=== PATIENT | female | born 1995 | race Caucasian/White ===

== ENCOUNTER → 2019-11-03 | Outpatient (CLI) | payer OTHER ==
--- NOTE | 2019-11-03 17:42 | MR ---
EXAMINATION TYPE: MR shoulder RT wo con DATE OF EXAM: 11/03/2019 COMPARISON: None HISTORY: 24 year-old female right shoulder pain, prior surgery 2012 TECHNIQUE: Multiplanar, multisequence imaging of the right shoulder is performed without contrast. FINDINGS: Long head biceps tendon appears intact and appropriately situated along the bicipital groove. The subscapularis tendon is intact. Mild degenerative change at the AC joint with marginal spurring, moderate space narrowing, capsular h ypertrophy. There is mild subchondral marrow edema and capsular edema. Mild mass effect onto the unde rlying myotendinous junction of the supraspinatus. Some minimal bursal sided fraying of the supraspinatus tendon is suggested. Some minimal intrasubstan ce change at the insertion of the infraspinatus tendon. No discrete tear of either supraspinatus or infraspinatus tendon is otherwise seen. No atrophy of the rotator cuff musculature. Trace fluid within the subacromial bursa. The glenohumeral joint appears intact without joint effusion. No discrete labral tear given nonarthrographic technique and no paralabral cyst. No Hill-Sachs deformity or os acromiale. Patchy red marrow is compatible with patient's young age. IMPRESSION: 1. Minimal bursal sided fraying of the supraspinatus tendon and minimal intrasubstance change at the insertion of the infraspinatus tendon. No discrete rotator cuff tear. 2. Mild AC joint OA. Subchondral bone marrow edema and capsular edema could represent a low-grade AC joint sprain. 3. There is mild subacromial impingement suggested.
== END | disposition home or self-care (01) ==
LOC: RADMRIMAIN 16:20
PROVIDERS: ATTEND Orthopaedic Surgery
DX: M19.011 Primary osteoarthritis, right shoulder (principal); M54.12 Radiculopathy, cervical region

== ENCOUNTER 2020-02-11 00:25 | Emergency (ER) | payer OTHER ==
[2020-02-11 00:34] VITALS: BP 116/74; PULSE 60; RESP 18; TEMP 98.4
--- NOTE | 2020-02-11 00:57 | ED ---
General Adult HPI - General Chief complaint: Extremity Injury, Lower Stated complaint: Foot Injury Time Seen by Provider: 02/11/20 00:35 Source: patient, family, RN notes reviewed Mode of arrival: wheelchair Limitations: no limitations - History of Present Illness Initial comments: 24-year-old female presents to the emergency room for a chief complaint of right foot injury. Patient reports that her coat got caught on a 50 pound stool and pulled it over. It fell onto the top of her foot. Patient reports that she is not having pain on the dorsum of the foot. States it is painful to move her toes but denies any difficulty doing so. Patient denies any numbness or tingling in the foot. Denies any other injury. Patient reports that it is painful to bear weight on the distal aspect of the foot because of pain.Patient has no other complaints at this time including shortness of breath, chest pain, abdominal pain, nausea or vomiting, headache, or visual changes. - Related Data Home Medications Medication Instructions Recorded Confirmed Norgestimate-Ethinyl Estradiol 1 tab PO DAILY 09/09/15 02/26/16 [Sprintec 28 Day Tablet] Previous Rx's Medication Instructions Recorded Ibuprofen [Motrin] 800 mg PO Q6HR PRN #30 tab 02/26/16 Allergies Allergy/AdvReac Type Severity Reaction Status Date / Time Penicillins Allergy Dyspnea, Verified 02/11/20 00:35 RASH HIVES Review of Systems ROS Statement: Those systems with pertinent positive or pertinent negative responses have been documented in the HPI. ROS Other: All systems not noted in ROS Statement are negative. Past Medical History Past Medical History: No Reported History History of Any Multi-Drug Resistant Organisms: None Reported Past Surgical History: Bariatric Surgery, Orthopedic Surgery Additional Past Surgical History / Comment(s): DERMOID TUMOR(LOWER ABDOMEN), RIGHT SHOULDER, Past Anesthesia/Blood Transfusion Reactions: No Reported Reaction Past Psychological History: No Psychological Hx Reported Smoking Status: Never smoker Past Alcohol Use History: Rare Past Drug Use History: None Reported - Past Family History Mother Family Medical History: No Reported History General Exam Limitations: no limitations General appearance: alert, in no apparent distress Head exam: Present: atraumatic, normocephalic, normal inspection Eye exam: Present: normal appearance, PERRL, EOMI. Absent: scleral icterus, conjunctival injection, periorbital swelling ENT exam: Present: normal exam, mucous membranes moist Neck exam: Present: normal inspection, full ROM. Absent: tenderness, meningismus, lymphadenopathy Respiratory exam: Present: normal lung sounds bilaterally. Absent: respiratory distress, wheezes, rales, rhonchi, stridor Cardiovascular Exam: Present: regular rate, normal rhythm, normal heart sounds. Absent: systolic murmur, diastolic murmur, rubs, gallop, clicks GI/Abdominal exam: Present: soft, normal bowel sounds. Absent: distended, tenderness, guarding, rebound, rigid Extremities exam: Present: tenderness (Tenderness to first MTP joint of the right foot with tenderness in the second and third toes. Mild edema noted to the dorsum of the first MTP joint. Otherwise no edema of the right foot.), normal capillary refill (Capillary refill less than 2 seconds, DP pulse 2+ in the right lower extremity.), other (Sensation intact right lower extremity.). Absent: full ROM (Patient has limited range of motion of all toes however this is secondary to pain. Flexion and extension mechanisms are intact.), calf tenderness Course Vital Signs 02/11/20 00:28 Temperature 98.4 F Pulse Rate 60 Respiratory 18 Rate Blood Pressure 116/74 O2 Sat by Pulse 100 Oximetry Medical Decision Making - Medical Decision Making X-ray of the right foot is negative. Patient was placed in a fracture shoe. Patient can follow up with orthopedics or primary care. Referral given orthopedics. She will take Motrin and Tylenol for pain. She'll return for any worsening symptoms. Disposition Clinical Impression: Foot pain, Contusion Disposition: HOME SELF-CARE Condition: Good Instructions (If sedation given, give patient instructions): Foot Contusion (ED) Additional Instructions: Take Motrin and Tylenol for pain. Rest ice and elevate the right foot. If pain does not resolve over the next 7 days you may benefit from repeat x-rays. You were given referral to orthopedics. Follow-up with primary care in 1-2 days. Return to the emergency room for any worsening symptoms. Is patient prescribed a controlled substance at d/c from ED?: No Referrals: Gustavo Calderon MD [STAFF PHYSICIAN] - 1-2 days Time of Disposition: 01:22
--- NOTE | 2020-02-11 00:57 | XR ---
EXAMINATION TYPE: XR foot complete RT DATE OF EXAM: 02/11/2020 COMPARISON: NONE HISTORY: Foot pain TECHNIQUE: 3 views FINDINGS: Metatarsals are intact. I see no fracture nor dislocation. Joint spaces are normal. Soft tissues appear normal. IMPRESSION: Negative right foot exam.
== END 2020-02-11 01:58 | disposition home or self-care (01) ==
LOC: EC 00:25
DX: S90.31XA Contusion of right foot, initial encounter (principal); Z98.84 Bariatric surgery status; Z88.0 Allergy status to penicillin; W20.8XXA Other cause of strike by thrown, projected or falling object, initial encounter
CPT/HCPCS: 99283

== ENCOUNTER 2020-11-16 21:36 | Emergency (ER) | payer OTHER ==
[2020-11-16 21:47] VITALS: RESP 16
[2020-11-16] MEDS ORDERED: SODIUM CHLORIDE 0.9% 1,000 ML IV ONE (22:43)
[2020-11-16 23:05] LABS: Basophils % (A) 0 %; Eosinophils # (A) 0.1 k/uL (0-0.7); Eosinophils % (A) 2 %; HCT 33.2 % (34.0-46.0); HGB 11.7 gm/dL (11.4-16.0); Lymphocytes # (A) 1.9 k/uL (1.0-4.8); Lymphocytes % (A) 29 %; MCH 30.7 pg (25.0-35.0); MCHC 35.3 g/dL (31.0-37.0); Mean Platelet Volume 7.7; Monocytes # (A) 0.5 k/uL (0-1.0); Monocytes % (A) 8 %; Neutrophils # (A) 3.8 k/uL (1.3-7.7); Neutrophils % (A) 59 %; Platelet Count 217 k/uL (150-450); RBC 3.82 m/uL (3.80-5.40); RDW 11.7 % (11.5-15.5); WBC 6.4 k/uL (3.8-10.6)
[2020-11-16 23:17] LABS: Amorphous Sediment,Urine Rare /hpf; Appearance,Urine Clear (Clear); Bilirubin,Urine Negative (Negative); Blood,Urine Trace (Negative); Color,Urine Light Yellow; Glucose,Urine (UA) Negative (Negative); Ketones,Urine Negative (Negative); Leukocyte Esterase,Urine Negative (Negative); Mucus,Urine Rare /hpf; Nitrite,Urine Negative (Negative); PH, Urine 5.5 (5.0-8.0); Protein,Urine Negative (Negative); RBC,Urine 1 /hpf (0-5); Specific Gravity,Urine 1.011 (1.001-1.035); Squamous Epithelial Cell,Urine 1 /hpf (0-4); Urobilinogen,Urine <2.0 mg/dL (<2.0); WBC,Urine <1 /hpf (0-5)
[2020-11-16 23:20] LABS: ALT 28 U/L (4-34); AST 35 U/L (14-36); African American GFR (CKD) >90 (>60 ml/min/1.73 sqM); Albumin 4.4 g/dL (3.5-5.0); Alkaline Phosphatase 41 U/L (38-126); Anion Gap 8 mmol/L; Blood Urea Nitrogen 9 mg/dL (7-17); Calcium 9.5 mg/dL (8.4-10.2); Carbon Dioxide 23 mmol/L (22-30); Chloride 106 mmol/L (98-107); Glucose 88 mg/dL (74-99); Non-African American GFR(CKD) >90 (>60 ml/min/1.73 sqM); Potassium 4.1 mmol/L (3.5-5.1); Sodium 137 mmol/L (137-145); Total Bilirubin 0.5 mg/dL (0.2-1.3); Total Protein 7.1 g/dL (6.3-8.2)
[2020-11-17 00:06] VITALS: BP 113/67; PULSE 62; TEMP 97.9
--- NOTE | 2020-11-17 00:18 | ED ---
General Adult HPI - General Chief complaint: Vaginal Bleeding Stated complaint: 8 wks preg, vaginal bleeding Time Seen by Provider: 11/16/20 22:04 Source: patient Mode of arrival: ambulatory - History of Present Illness Initial comments: 25 year-old female patient who thinks she is 7-9 weeks , last menstrual period 07/15/20, presents for evaluation of vaginal bleeding. She is . States she did have light spotting and cramping starting this morning. This evening the bleeding became heavier and was bright red so she presented here for further evaluation. States that she did have labs and ultrasound at an OBGYN on [address] States that her last hCG was around 7,000 and they would not give her information regarding what the ultrasound showed. Just told her if she had any bleeding that she needed to be seen in ED. She states that the bleeding has slowed at this time. Continues to have pressure in the lower abdomen. Denies any fever or chills. Denies any hematuria, dysuria, urinary frequency, urinary urgency. Patient denies any recent rash, cough, shortness of breath, chest pain, back pain, numbness, tingling, dizziness, weakness, headache, visual changes, or any other complaints. - Related Data Home Medications Medication Instructions Recorded Confirmed Norgestimate-Ethinyl Estradiol 1 tab PO DAILY 09/09/15 02/26/16 [Sprintec 28 Day Tablet] Previous Rx's Medication Instructions Recorded Ibuprofen [Motrin] 800 mg PO Q6HR PRN #30 tab 02/26/16 Allergies Allergy/AdvReac Type Severity Reaction Status Date / Time Penicillins Allergy Dyspnea, Verified 11/16/20 21:47 RASH HIVES Review of Systems ROS Statement: Those systems with pertinent positive or pertinent negative responses have been documented in the HPI. ROS Other: All systems not noted in ROS Statement are negative. Past Medical History Past Medical History: No Reported History History of Any Multi-Drug Resistant Organisms: None Reported Past Surgical History: Bariatric Surgery, Orthopedic Surgery Additional Past Surgical History / Comment(s): DERMOID TUMOR(LOWER ABDOMEN), RIGHT SHOULDER, Past Anesthesia/Blood Transfusion Reactions: No Reported Reaction Past Psychological History: No Psychological Hx Reported Smoking Status: Never smoker Past Alcohol Use History: Rare Past Drug Use History: None Reported - Past Family History Mother Family Medical History: No Reported History General Exam General appearance: alert, in no apparent distress, other (Physical well- developed, well-nourished adult female patient in no acute distress. Vital signs upon presentation are temperature 98.5F, pulse 57, respirations 16, blood pressure 135/77, pulse ox 99% on room air.) ENT exam: Present: normal exam, normal oropharynx, mucous membranes moist Respiratory exam: Present: normal lung sounds bilaterally. Absent: respiratory distress, wheezes, rales, rhonchi, stridor Cardiovascular Exam: Present: regular rate, normal rhythm, normal heart sounds. Absent: systolic murmur, diastolic murmur, rubs, gallop, clicks GI/Abdominal exam: Present: soft, tenderness (Suprapubic), normal bowel sounds. Absent: distended, guarding, rebound, rigid Neurological exam: Present: alert, oriented X3, CN II-XII intact Psychiatric exam: Present: normal affect, normal mood Skin exam: Present: warm, dry, intact, normal color. Absent: rash Course Vital Signs 11/16/20 11/16/20 11/17/20 21:42 22:41 00:00 Temperature 98.5 F 97.9 F Pulse Rate 57 L 62 Respiratory 16 16 16 Rate Blood Pressure 135/77 113/67 O2 Sat by Pulse 99 99 Oximetry Medical Decision Making - Medical Decision Making 25-year-old female patient , presents for evaluation of vaginal bleeding and cramping in early . Patient reported being around 7-9 weeks . Physical exam is unremarkable. Vaginal exam shows no bleeding at this time. Cervical os is closed[place] [address], ABO/Rh A+. US showed viable intrauterine measuring 6 weeks, 3 days with Left ovarian cyst, possible small subchorionic hemorrhage, and low heart rate. I did discuss findings and results with the patient. We did discuss possibility of threatened miscarriage. She is instructed to follow-up with her [facility] for recheck in 1-2 days. Return parameters were discussed in detail. She v erbalizes understanding and agrees with this plan. Case discussed in my attending Dr. Jacob. - Lab Data Result diagrams: 11/16/20 22:55 11/16/20 22:55 Lab Results 11/16/20 11/16/20 11/16/20 Range/Units 22:55 22:55 22:55 WBC 6.4 (3.8-10.6) k/uL RBC 3.82 (3.80-5.40) m/uL Hgb 11.7 (11.4-16.0) gm/dL Hct 33.2 L (34.0-46.0) % MCV 87.0 (80.0-100.0) fL MCH 30.7 (25.0-35.0) pg MCHC 35.3 (31.0-37.0) g/dL RDW 11.7 (11.5-15.5) % Plt Count 217 (150-450) k/uL MPV 7.7 Neutrophils % 59 % Lymphocytes % 29 % Monocytes % 8 % Eosinophils % 2 % Basophils % 0 % Neutrophils # 3.8 (1.3-7.7) k/uL Lymphocytes # 1.9 (1.0-4.8) k/uL Monocytes # 0.5 (0-1.0) k/uL Eosinophils # 0.1 (0-0.7) k/uL Basophils # 0.0 (0-0.2) k/uL Sodium 137 (137-145) mmol/L Potassium 4.1 (3.5-5.1) mmol/L Chloride 106 (98-107) mmol/L Carbon Dioxide 23 (22-30) mmol/L Anion Gap 8 mmol/L BUN 9 (7-17) mg/dL Creatinine 0.49 L (0.52-1.04) mg/dL Est GFR (CKD-EPI)AfAm >90 (>60 ml/min/1.73 sqM) Est GFR (CKD-EPI)NonAf >90 (>60 ml/min/1.73 sqM) Glucose 88 (74-99) mg/dL Calcium 9.5 (8.4-10.2) mg/dL Total Bilirubin 0.5 (0.2-1.3) mg/dL AST 35 (14-36) U/L ALT 28 (4-34) U/L Alkaline Phosphatase 41 (38-126) U/L Total Protein 7.1 (6.3-8.2) g/dL Albumin 4.4 (3.5-5.0) g/dL HCG, Quant 41035.0 mIU/mL Urine Color Light Yellow Urine Appearance Clear (Clear) Urine pH 5.5 (5.0-8.0) Ur Specific [place] 1.011 (1.001-1.035) Urine Protein Negative (Negative) Urine Glucose (UA) Negative (Negative) Urine Ketones Negative (Negative) Urine Blood Trace H (Negative) Urine Nitrite Negative (Negative) Urine Bilirubin Negative (Negative) Urine Urobilinogen <2.0 (<2.0) mg/dL Ur Leukocyte Esterase Negative (Negative) Urine RBC 1 (0-5) /hpf Urine WBC <1 (0-5) /hpf Ur Squamous Epith Cells 1 (0-4) /hpf Amorphous Sediment Rare H (None) /hpf Urine Mucus Rare H (None) /hpf Blood Type Blood Type Recheck Bld Type Recheck Status 11/16/20 Range/Units 22:55 WBC (3.8-10.6) k/uL RBC (3.80-5.40) m/uL Hgb (11.4-16.0) gm/dL Hct (34.0-46.0) % MCV (80.0-100.0) fL MCH (25.0-35.0) pg MCHC (31.0-37.0) g/dL RDW (11.5-15.5) % Plt Count (150-450) k/uL MPV Neutrophils % % Lymphocytes % % Monocytes % % Eosinophils % % Basophils % % Neutrophils # (1.3-7.7) k/uL Lymphocytes # (1.0-4.8) k/uL Monocytes # (0-1.0) k/uL Eosinophils # (0-0.7) k/uL Basophils # (0-0.2) k/uL Sodium (137-145) mmol/L Potassium (3.5-5.1) mmol/L Chloride (98-107) mmol/L Carbon Dioxide (22-30) mmol/L Anion Gap mmol/L BUN (7-17) mg/dL Creatinine (0.52-1.04) mg/dL Est GFR (CKD-EPI)AfAm (>60 ml/min/1.73 sqM) Est GFR (CKD-EPI)NonAf (>60 ml/min/1.73 sqM) Glucose (74-99) mg/dL Calcium (8.4-10.2) mg/dL Total Bilirubin (0.2-1.3) mg/dL AST (14-36) U/L ALT (4-34) U/L Alkaline Phosphatase (38-126) U/L Total Protein (6.3-8.2) g/dL Albumin (3.5-5.0) g/dL HCG, Quant mIU/mL Urine Color Urine Appearance (Clear) Urine pH (5.0-8.0) Ur Specific [place] (1.001-1.035) Urine Protein (Negative) Urine Glucose (UA) (Negative) Urine Ketones (Negative) Urine Blood (Negative) Urine Nitrite (Negative) Urine Bilirubin (Negative) Urine Urobilinogen (<2.0) mg/dL Ur Leukocyte Esterase (Negative) Urine RBC (0-5) /hpf Urine WBC (0-5) /hpf Ur Squamous Epith Cells (0-4) /hpf Amorphous Sediment (None) /hpf Urine Mucus (None) /hpf Blood Type A Positive Blood Type Recheck No Previous Record Bld Type Recheck Status [facility] ONLY - Radiology Data Radiology results: report reviewed, image reviewed Ultrasound of the fetus was obtained. Report was reviewed in its entirety. Impression by Dr. Harvey shows ultrasound gestational age is 6 weeks and 3 days. heart rate is lower limits of normal. 4 x 3 cm left ovarian cyst. No solid adnexal mass. Disposition Clinical Impression: Threatened miscarriage Disposition: HOME SELF-CARE Condition: Good Instructions (If sedation given, give patient instructions): Threatened Miscarriage (ED) Additional Instructions: Follow up with OBGYN as soon as possible. Pelvic rest and to you are cleared by your credit review analyst. Return to the emergency department for any new, worsening, or concerning symptoms. Is patient prescribed a controlled substance at d/c from ED?: No Referrals: None,Stated [Primary Care Provider] - 1-2 days Time of Disposition: 00:44
--- NOTE | 2020-11-17 00:36 | US ---
EXAMINATION TYPE: Transabdominal DATE OF EXAM: 11/16/2020 11:54 PM COMPARISON: US. This is first US for this . CLINICAL HISTORY: Bleeding early . Bleeding. Hx cyst removal. . EXAM PERFORMED: Transvaginal (TV) and Transabdominal (TA) EXAM MEASUREMENTS: GESTATIONAL AGE / DATING Physician Established: Not yet established. Dates by LMP: Unknown. Dates by First Scan: This is first scan. Dates by Current Scan for: (6 weeks/3 days) EDC: 07/09/2021 MATERNAL ANATOMY Uterus: Limited measurement: 8.0 x 5.7 x 5.1 cm. Anteverted. Right Ovary: 4.0 x 2.9 x 2.7 cm. Appears slightly enlarged. Area of mixed echogenicity seen within t he right ovary: 2.6 x 2.1 x 1.5 cm. Left Ovary: 5.8 x 3.2 x 3.5 cm. Appears enlarged. Anechoic and complex areas seen within the left ova ry. Largest anechoic area seen measures 3.9 x 3.1 x 2.8 cm. Hyperechoic area seen: 1.1 x 0.7 x 1.2 cm . Post CDS / Adnexa: Fluid seen in CDS: 0.9 x 1.5 x 1.9 cm. Presence of free fluid: Free fluid seen in right adnexa, left adnexa, and CDS. Presence of corpus luteal cyst: Possible within right ovary. Presence of subchorionic bleed: Possible, Hypoechoic area seen adjacent to the gestational sac: 0.3 x 0.5 x 0.3 cm. GESTATION / SURVEY CRL: 0.59 cm. (6 weeks/3 days) Yolk Sac (normal less than 6mm): 2.7 mm. Heart Rate: 117 bpm, 118 bpm second measurement. Rhythm: Heart rate is slightly low (below 120 bpm). IUP: Viable IUP Date of LMP: Unknown. Beta HcG (if available): Not available. IMPRESSION: The ultrasound gestational age is 6 weeks and 3 days. heart rate is lower limit of normal. 4 x 3 cm left ovarian cyst. No solid adnexal mass.
== END 2020-11-17 01:27 | disposition home or self-care (01) ==
LOC: EC 21:36
DX: O20.0 Threatened abortion (principal); Z3A.01 Less than 8 weeks gestation of pregnancy
CPT/HCPCS: 36415; 76801; 76817; 80053; 81001; 84702; 85025; 86900; 86901; 99284

== ENCOUNTER 2021-05-23 18:45 | Outpatient (CLI) | payer OTHER ==
[2021-05-23] MEDS ORDERED: ACETAMINOPHEN IV (For NPO) 1,000 MG in EMPTY BAG 1 BAG IVPB ONE (19:23)
[2021-05-23] MEDS ORDERED: ONDANSETRON 4 MG/2 ML VIAL IVP STA (19:23)
[2021-05-23] MEDS ORDERED: LACTATED RINGERS 1,000 ML IV SCH (19:30)
[2021-05-23 19:49] LABS: Appearance,Urine Cloudy (Clear); Bilirubin,Urine Negative (Negative); Blood,Urine Negative (Negative); Color,Urine Yellow; Glucose,Urine (UA) Negative (Negative); Ketones,Urine 4+ (Negative); Leukocyte Esterase,Urine Small (Negative); Mucus,Urine Many /hpf; Nitrite,Urine Negative (Negative); Protein,Urine 2+ (Negative); RBC,Urine 1 /hpf (0-5); Specific Gravity,Urine 1.032 (1.001-1.035); Squamous Epithelial Cell,Urine 15 /hpf (0-4); WBC,Urine 3 /hpf (0-5)
[2021-05-23] MEDS ORDERED: ONDANSETRON 4 MG TAB PO PRN (20:38)
[2021-05-23 22:56] VITALS: BP 133/74; PULSE 129; RESP 17; TEMP 99.1
--- NOTE | 2021-05-26 09:40 | P.MSEPDOC ---
Presenting Problems - Arrival Data Date of Arrival on Unit: 05/23/21 Time of Arrival on Unit: 18:45 Mode of Transport: Ambulatory - Complaint OB-Reason for Admission/Chief Complaint: Acute Nausea/Vomiting, Headache, Other Comment: Patient presents to triage for nausea/vomiting, headache, fevers, and diarrhea after receiving Tdap vaccine on 05/22/21. Medical History - Information : 1 Para: 0 Term: 0 : 0 Abortions: Spontaneous or Elective: 0 Number of Living Children: 0 - Gestational Age Gestational Age by NANDA (wks/days): 33 Weeks and 3 Days - History Complications: Other Comment: Hypoglycemia, MC4R Receptor Mutation Review of Systems - Review of Systems Constitutional: Fever Breast: No problems ENT: No problems Cardiovascular: No problems Respiratory: No problems Gastrointestinal: Diarrhea Genitourinary: No problems Musculoskeletal: No problems Neurological: No problems Skin: No problems Vital Signs - Temperature Temperature: 99.1 F Temperature Source: Temporal Artery Scan - Pulse Pulse Oximetery Pulse Rate: 129 Pulse Assessment Method: Pulse Oximetry - Respirations Respiratory Rate: 17 Oxygen Delivery Method: Room Air O2 Sat by Pulse Oximetry: 100 - Blood Pressure Right Arm Blood Pressure: 133/74 Blood Pressure Mean: 93 Blood Pressure Source: Automatic Cuff Medical Screen Scoring - Assessment - Baby A Baseline FHR: 150 Heart Rate - NICHD Category: Category I (Normal) NST: Reactive Physician Notification - Physician Notified Physician Notified Date: 05/23/21 Physician Notified Time: 19:18 Physician: Dr. Peguero New Order Received: Yes - Notification Comment Comment: Report given to Dr. Peguero via telephone regarding patient complaints of nausea, vomiting, diarrhea, fevers and headache since 1529 on 05/22/21. 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 Orders from Dr. Peguero include a rapid COVID swab, urinalysis, bolus of 500 mL of lactated ringers, 1 gm of Ofirmev and 4 mg of zofran IVP. At 2033, spoke with Dr. Peguero regarding the patient's status, including a negative COVID. swab, urinalysis results, category 1 heart tones, vital signs and patient feeling less nauseous after dose of zofran. New orders include sending patient home with one dose of 4 mg PO zofran and educate patient regarding immune response from Tdap vaccine. Maternal Triage Index - Non-Urgent/Priority 4 Non-Urgent Priority 4: Yes Criteria Met for Priority 4: Patient presents to triage for nausea/vomiting, headache, fevers, and diarrhea after receiving Tdap vaccine on 05/22/21. Disposition - Disposition OB Disposition: Discharge to home, Written follow up instructions reviewed Discharge Date: 05/23/21 Discharge Time: 21:00 I agree with the RN Medical Screening Exam: Yes Case reviewed; plan agreed upon as documented in EMR&OBIX.: Yes Diagnosis: VOMITING OF , UNSPECIFIED
== END 2021-05-23 21:00 | disposition home or self-care (01) ==
LOC: FBPOP 18:45
PROVIDERS: ATTEND Obstetrics & Gynecology Obstetrics
DX: O21.2 Late vomiting of pregnancy (principal); Z3A.33 33 weeks gestation of pregnancy; Z88.0 Allergy status to penicillin; Z91.041 Radiographic dye allergy status
CPT/HCPCS: 59025; 96361; 96367; 96374; 81001; 87635; G0463; J2405; J0131; 99214

== ENCOUNTER 2022-12-12 01:54 | Emergency (ER) | payer OTHER ==
[2022-12-12 02:06] VITALS: RESP 18
[2022-12-12] MEDS ORDERED: ONDANSETRON 4 MG/2 ML VIAL IVP STA (02:19)
[2022-12-12] MEDS ORDERED: SODIUM CHLORIDE 0.9% 1,000 ML IV STA (02:19)
--- NOTE | 2022-12-12 02:26 | ED ---
General Adult HPI - General Chief complaint: Nausea/Vomiting/Diarrhea Stated complaint: Nausea, Blood in urine Time Seen by Provider: 12/12/22 02:08 Source: patient, RN notes reviewed, old records reviewed Mode of arrival: ambulatory Limitations: no limitations - History of Present Illness Initial comments: 27-year-old female presents for evaluation of nausea vomiting after initiating Wegovy. Patient began this medication one week ago she states this was at the high dose. She had significant nausea and vomiting and is unable to tolerate any oral liquids over the past one week. She states she had received IV fluids at outside facility early this morning he was also diagnosed with urinary tract infection. She has had bilateral low back pain and hematuria. No fever. - Related Data Home Medications Medication Instructions Recorded Confirmed norgestimate-ethinyl estradioL 1 tab PO DAILY 09/09/15 05/03/22 [Sprintec 28 Day Tablet] Previous Rx's Medication Instructions Recorded Ibuprofen [Motrin] 800 mg PO Q6HR PRN #30 tab 02/26/16 Allergies Allergy/AdvReac Type Severity Reaction Status Date / Time Penicillins Allergy Rash/Hives Verified 12/12/22 02:06 red dye AdvReac Rash/Hives Verified 12/12/22 02:06 Review of Systems ROS Statement: Those systems with pertinent positive or pertinent negative responses have been documented in the HPI. ROS Other: All systems not noted in ROS Statement are negative. Past Medical History Past Medical History: No Reported History Additional Past Medical History / Comment(s): LOW IRON LEVELS, MC4R mutation History of Any Multi-Drug Resistant Organisms: None Reported Past Surgical History: Bariatric Surgery, Orthopedic Surgery Additional Past Surgical History / Comment(s): DERMOID TUMOR(LOWER ABDOMEN), RIGHT SHOULDER, Past Anesthesia/Blood Transfusion Reactions: No Reported Reaction Past Psychological History: No Psychological Hx Reported Smoking Status: Never smoker Past Alcohol Use History: None Reported Past Drug Use History: None Reported - Past Family History Mother Family Medical History: No Reported History General Exam Limitations: no limitations General appearance: alert, in no apparent distress Head exam: Present: atraumatic, normocephalic Eye exam: Present: normal appearance ENT exam: Present: mucous membranes dry Neck exam: Present: normal inspection Respiratory exam: Present: normal lung sounds bilaterally. Absent: respiratory distress, wheezes Cardiovascular Exam: Present: regular rate, normal rhythm GI/Abdominal exam: Absent: distended Neurological exam: Present: alert, CN II-XII intact. Absent: motor sensory deficit Psychiatric exam: Present: normal affect, normal mood Skin exam: Present: warm, dry, intact Course Vital Signs 12/12/22 12/12/22 02:03 04:36 Temperature 98 F 98.8 F Pulse Rate 72 Pulse Rate [ 68 Right Pulse Oximetery] Respiratory 18 18 Rate Blood Pressure 116/80 Blood Pressure 106/65 [Left Arm Supine] O2 Sat by Pulse 100 99 Oximetry Medical Decision Making - Medical Decision Making Was pt. sent in by a medical professional or institution (, PA, [employer]EDER, urgent care, hospital, or retirement...) When possible be specific @ -No Did you speak to anyone other than the patient for history (EMS, parent, family, police, friend...)? What history was obtained from this source @ -No Did you review nursing and triage notes (agree or disagree)? Why? @ -I reviewed and agree with nursing and triage notes Were old charts reviewed (outside hosp., previous admission, EMS record, old EKG, old radiological studies, urgent care reports/EKG's, retirement records)? Report findings @ -No old charts were reviewed Differential Diagnosis (chest pain, altered mental status, abdominal pain women, abdominal pain men, vaginal bleeding, weakness, fever, dyspnea, syncope, headache, dizziness, GI bleed, back pain, seizure, CVA, palpatations, mental health, musculoskeletal)? @ Differential Abdominal Pain Women: Appendicitis, Cholecystitis, diverticulosis, ischemic bowel, pancreatitis, hepatitis, UTI, gastroenteritis, AAA, incarcerated hernia, bowel obstruction, constipation, inflammatory bowel, hepatitis, peptic ulcer disease, splenic infarction, perforated viscus, vulvitis, ovarian torsion, PID, kidney stone, placenta abruption, this is not meant to be an all-inclusive list EKG interpreted by me (3pts min.). @ -As above X-rays interpreted by me (1pt min.). @ -None done CT interpreted by me (1pt min.). @ CT negative for acute intra-abdominal process U/S interpreted by me (1pt. min.). @ -None done What testing was considered but not performed or refused? (CT, X-rays, U/S, labs)? Why? @ -None What meds were considered but not given or refused? Why? @ -None Did you discuss the management of the patient with other professionals (professionals i.e. , PA, [employer]EDER, lab, RT, psych nurse, social insurance administrator, microsoft exchange administrator, teacher, ambulance officer, case management coordinator)? Give summary @ -No Was smoking cessation discussed for >3mins.? @ -No Was critical care preformed (if so, how long)? @ -No Were there social determinants of health that impacted care today? How? (Homelessness, low income, unemployed, alcoholism, drug addiction, transportation, low edu. Level, literacy, decrease access to med. care, correction, rehab)? @ -No Was there de-escalation of care discussed even if they declined (Discuss DNR or withdrawal of care, Hospice)? DNR status @ -No What co-morbidities impacted this encounter? (DM, HTN, Smoking, COPD, CAD, Cancer, CVA, ARF, Chemo, Hep., AIDS, mental health diagnosis, sleep apnea, morbid obesity)? @ -[Prior gastric sleeve Was patient admitted / discharged? Hospital course, mention meds given and route, prescriptions, significant lab abnormalities, going to OR and other pertinent info. @ -[27-year-old female with abdominal pain nausea vomiting. Patient has normal CBC without leukocytosis, stable hemoglobin, normal electrolytes urinalysis is contaminated but does not appear to have signs of significant infection. CT is performed which is negative for acute intra-abdominal process. Patient r eevaluated after symptomatically treatment and is feeling significantly better. She received pain medication, antiemetics and IV fluids. She's given return parameters and will follow with her primary care physician. Undiagnosed new problem with uncertain prognosis? @ -No Drug Therapy requiring intensive monitoring for toxicity (Heparin, Nitro, Insulin, Cardizem)? @ -No Were any procedures done? @ -No Diagnosis/symptom? @ Abdominal Pain, nausea vomiting Acute, or Chronic, or Acute on Chronic? @ Acute Uncomplicated (without systemic symptoms) or Complicated (systemic symptoms)? @ -default Side effects of treatment? @ -No Exacerbation, Progression, or Severe Exacerbation? @ -No Poses a threat to life or bodily function? How? (Chest pain, USA, NC, pneumonia, PE, COPD, DKA, ARF, appy, cholecystitis, CVA, Diverticulitis, Homicidal, Suicidal, threat to staff... and all critical care pts) @ -Low risk at this time - Lab Data Result diagrams: 12/12/22 02:12/12/22 02: Lab Results 12/12/22 12/12/22 12/12/22 Range/Units 02: 02: 02:23 WBC 5.4 (3.8-10.6) k/uL RBC 4.49 (3.80-5.40) m/uL Hgb 13.4 (11.4-16.0) gm/dL Hct 38.7 (34.0-46.0) % MCV 86.2 (80.0-100.0) fL MCH 29.8 (25.0-35.0) pg MCHC 34.6 (31.0-37.0) g/dL RDW 11.5 (11.5-15.5) % Plt Count 220 (150-450) k/uL MPV 9.0 Neutrophils % 52 % Lymphocytes % 38 % Monocytes % 7 % Eosinophils % 1 % Basophils % 0 % Neutrophils # 2.8 (1.3-7.7) k/uL Lymphocytes # 2.1 (1.0-4.8) k/uL Monocytes # 0.4 (0-1.0) k/uL Eosinophils # 0.1 (0-0.7) k/uL Basophils # 0.0 (0-0.2) k/uL Sodium 136 L (137-145) mmol/L Potassium 4.9 (3.5-5.1) mmol/L Chloride 104 (98-107) mmol/L Carbon Dioxide 22 (22-30) mmol/L Anion Gap 10 mmol/L BUN 8 (7-17) mg/dL Creatinine 0.55 (0.52-1.04) mg/dL Est GFR (CKD-EPI)AfAm >90 (>60 ml/min/1.73 sqM) Est GFR (CKD-EPI)NonAf >90 (>60 ml/min/1.73 sqM) Glucose 83 (74-99) mg/dL Calcium 9.1 (8.4-10.2) mg/dL Magnesium 1.9 (1.6-2.3) mg/dL Total Bilirubin 1.2 (0.2-1.3) mg/dL AST 35 (14-36) U/L ALT 21 (4-34) U/L Alkaline Phosphatase 42 (38-126) U/L Total Protein 8.0 (6.3-8.2) g/dL Albumin 4.9 (3.5-5.0) g/dL Lipase 81 (23-300) U/L Urine Color Light Yellow Urine Appearance Cloudy H (Clear) Urine pH 5.5 (5.0-8.0) Ur Specific [place] 1.008 (1.001-1.035) Urine Protein Negative (Negative) Urine Glucose (UA) Negative (Negative) Urine Ketones 1+ H (Negative) Urine Blood Negative (Negative) Urine Nitrite Negative (Negative) Urine Bilirubin Negative (Negative) Urine Urobilinogen <2.0 (<2.0) mg/dL Ur Leukocyte Esterase Negative (Negative) Urine WBC 8 H (0-5) /hpf Ur Squamous Epith Cells 8 H (0-4) /hpf Amorphous Sediment Occasional H (None) /hpf Urine Mucus Rare H (None) /hpf Urine HCG, Qual (Not Detectd) 12/12/22 Range/Units 02:23 WBC (3.8-10.6) k/uL RBC (3.80-5.40) m/uL Hgb (11.4-16.0) gm/dL Hct (34.0-46.0) % MCV (80.0-100.0) fL MCH (25.0-35.0) pg MCHC (31.0-37.0) g/dL RDW (11.5-15.5) % Plt Count (150-450) k/uL MPV Neutrophils % % Lymphocytes % % Monocytes % % Eosinophils % % Basophils % % Neutrophils # (1.3-7.7) k/uL Lymphocytes # (1.0-4.8) k/uL Monocytes # (0-1.0) k/uL Eosinophils # (0-0.7) k/uL Basophils # (0-0.2) k/uL Sodium (137-145) mmol/L Potassium (3.5-5.1) mmol/L Chloride (98-107) mmol/L Carbon Dioxide (22-30) mmol/L Anion Gap mmol/L BUN (7-17) mg/dL Creatinine (0.52-1.04) mg/dL Est GFR (CKD-EPI)AfAm (>60 ml/min/1.73 sqM) Est GFR (CKD-EPI)NonAf (>60 ml/min/1.73 sqM) Glucose (74-99) mg/dL Calcium (8.4-10.2) mg/dL Magnesium (1.6-2.3) mg/dL Total Bilirubin (0.2-1.3) mg/dL AST (14-36) U/L ALT (4-34) U/L Alkaline Phosphatase (38-126) U/L Total Protein (6.3-8.2) g/dL Albumin (3.5-5.0) g/dL Lipase (23-300) U/L Urine Color Urine Appearance (Clear) Urine pH (5.0-8.0) Ur Specific [place] (1.001-1.035) Urine Protein (Negative) Urine Glucose (UA) (Negative) Urine Ketones (Negative) Urine Blood (Negative) Urine Nitrite (Negative) Urine Bilirubin (Negative) Urine Urobilinogen (<2.0) mg/dL Ur Leukocyte Esterase (Negative) Urine WBC (0-5) /hpf Ur Squamous Epith Cells (0-4) /hpf Amorphous Sediment (None) /hpf Urine Mucus (None) /hpf Urine HCG, Qual Not Detected (Not Detectd) Disposition Clinical Impression: Dehydration, Nausea & vomiting Disposition: HOME SELF-CARE Condition: Fair Instructions (If sedation given, give patient instructions): Acute Nausea and V omiting (ED) Additional Instructions: Please return to the emergency department with any new or worsening concerns. Is patient prescribed a controlled substance at d/c from ED?: No Referrals: Ibeth Medina MD [Primary Care Provider] - 1-2 days Time of Disposition: 05:23
[2022-12-12 02:50] LABS: ALT 21 U/L (4-34); African American GFR (CKD) >90 (>60 ml/min/1.73 sqM); Anion Gap 10 mmol/L; Blood Urea Nitrogen 8 mg/dL (7-17); Calcium 9.1 mg/dL (8.4-10.2); Carbon Dioxide 22 mmol/L (22-30); Chloride 104 mmol/L (98-107); Glucose 83 mg/dL (74-99); Lipase 81 U/L (23-300); Non-African American GFR(CKD) >90 (>60 ml/min/1.73 sqM); Sodium 136 mmol/L (137-145)
[2022-12-12 02:53] LABS: Amorphous Sediment,Urine Occasional /hpf; Appearance,Urine Cloudy (Clear); Bilirubin,Urine Negative (Negative); Blood,Urine Negative (Negative); Color,Urine Light Yellow; Glucose,Urine (UA) Negative (Negative); Ketones,Urine 1+ (Negative); Leukocyte Esterase,Urine Negative (Negative); Mucus,Urine Rare /hpf; Nitrite,Urine Negative (Negative); PH, Urine 5.5 (5.0-8.0); Protein,Urine Negative (Negative); Specific Gravity,Urine 1.008 (1.001-1.035); Squamous Epithelial Cell,Urine 8 /hpf (0-4); Urobilinogen,Urine <2.0 mg/dL (<2.0); WBC,Urine 8 /hpf (0-5)
[2022-12-12] MEDS ORDERED: HYDROmorphone 0.5 MG/0.5 ML SYRINGE IVP STA (03:00)
[2022-12-12 03:05] LABS: AST 35 U/L (14-36); Albumin 4.9 g/dL (3.5-5.0); Alkaline Phosphatase 42 U/L (38-126); Magnesium 1.9 mg/dL (1.6-2.3); Potassium 4.9 mmol/L (3.5-5.1); Total Bilirubin 1.2 mg/dL (0.2-1.3)
[2022-12-12 03:16] LABS: Basophils % (A) 0 %; Eosinophils # (A) 0.1 k/uL (0-0.7); Eosinophils % (A) 1 %; HCT 38.7 % (34.0-46.0); HGB 13.4 gm/dL (11.4-16.0); Lymphocytes # (A) 2.1 k/uL (1.0-4.8); Lymphocytes % (A) 38 %; MCH 29.8 pg (25.0-35.0); MCHC 34.6 g/dL (31.0-37.0); MCV 86.2 fL (80.0-100.0); Monocytes # (A) 0.4 k/uL (0-1.0); Monocytes % (A) 7 %; Neutrophils # (A) 2.8 k/uL (1.3-7.7); Neutrophils % (A) 52 %; Platelet Count 220 k/uL (150-450); RBC 4.49 m/uL (3.80-5.40); RDW 11.5 % (11.5-15.5); WBC 5.4 k/uL (3.8-10.6)
[2022-12-12] MEDS ORDERED: KETOROLAC 15 MG/ML 1 ML VIAL IVP STA (04:05)
[2022-12-12 04:38] VITALS: BP 106/65; TEMP 98.8
--- NOTE | 2022-12-12 05:16 | CT ---
EXAM: CT Abdomen and Pelvis With Intravenous Contrast CLINICAL HISTORY: ITS.REASON CT Reason: ab pain TECHNIQUE: Axial computed tomography images of the abdomen and pelvis with intravenous contrast. CTDI is 19.2 mGy and DLP is 991.3 mGy-cm. This CT exam was performed using one or more of the following dose reduction techniques: automated exposure control, adjustment of the mA and/or kV according to patient size, and/or use of iterative reconstruction technique. COMPARISON: 08/05/2015 FINDINGS: Lung bases: Unremarkable. No mass. No consolidation. ABDOMEN: Liver: Unremarkable. No mass. Gallbladder and bile ducts: Unremarkable. No calcified stones. No ductal dilation. Pancreas: Unremarkable. No mass. No ductal dilation. Spleen: Unremarkable. No splenomegaly. Adrenals: Unremarkable. No mass. Kidneys and ureters: Unremarkable. No solid mass. No hydronephrosis. Stomach and bowel: Postsurgical change from prior sleeve gastrectomy. No obstruction. No mucosal thickening. PELVIS: Appendix: No findings to suggest acute appendicitis. Bladder: Unremarkable. No mass. Reproductive: 5.7 cm left ovarian dermoid. ABDOMEN and PELVIS: Intraperitoneal space: Unremarkable. No free air. No significant fluid collection. Bones/joints: No acute fracture. No dislocation. Soft tissues: Unremarkable. Vasculature: Unremarkable. No abdominal aortic aneurysm. Lymph nodes: Unremarkable. No enlarged lymph nodes. IMPRESSION: No acute intra-abdominal process.
[2022-12-12 05:21] VITALS: PULSE 68
== END 2022-12-12 05:37 | disposition home or self-care (01) ==
LOC: EC 01:54
DX: E86.0 Dehydration (principal); R11.2 Nausea with vomiting, unspecified; Z88.0 Allergy status to penicillin; Z88.8 Allergy status to other drugs, medicaments and biological substances
CPT/HCPCS: 36415; 80053; 83690; 83735; 85025; 81001; 81025; 74177; 99284; 96374; 96375 ×2; 96361; J2405; J1885; J1170; Q9967